=== PATIENT | male | born 1985 | race African-American/Black ===

== ENCOUNTER 2020-12-30 11:48 | Emergency (ER) | payer SELFPAY ==
[~2020-12-30] VITALS: Ht 175.3 cm; Wt 66.0 kg
[2020-12-30] MEDS ORDERED: NAPROXEN 500 MG TABLET PO STA (12:04)
[2020-12-30] MEDS ORDERED: CYCLOBENZAPRINE 10 MG TABLET. PO ONE (12:15)
[2020-12-30] MEDS ORDERED: predniSONE 20 MG TABLET PO ONE (12:15)
[2020-12-30] MEDS ORDERED: HYDROcodone/APAP 5/325MG 1 TAB TABLET PO ONE (12:15)
--- NOTE | 2020-12-30 12:21 | RAD ---
XR SHOULDER_LEFT 2+ VIEWS History: Reason: PAIN, BOWLING INJURY 11 DAYS AGO / Spl. Instructions: / History: Comparison: None. Technique: 3 views the left shoulder. Findings: There is no evidence for fracture. Alignment is normal. No destructive osseous lesions are seen. Joint spaces are preserved. Soft tissues are normal. Impression: 1. Unremarkable left shoulder. Electronically signed by: Adi Guerra MD (12/30/2020 12:19 PM) [facility]
[2020-12-30] MEDS ORDERED: NAPR-514 PO (12:57)
[2020-12-30] MEDS ORDERED: CYCL10TA2 PO (12:57)
[2020-12-30] MEDS ORDERED: METH4TAB2 PO (12:57)
--- NOTE | 2020-12-30 12:57 | PHYS DOC ---
Past Medical History Past Medical History: No Pertinent History Past Surgical History: No Surgical History Smoking Status: Current Every Day Smoker Alcohol Use: Occasionally Drug Use: Marijuana General Adult EDM: Chief Complaint: SHOULDER INJURY HPI: HPI: Patient is a 35 year old male patient presenting to the ED today complaining of moderate pain to the left shoulder that began 1-1/2 weeks ago. Patient denies any known injury but states he has been bowling a lot. 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 Patient states the pain is worse during bowling episodes. Describes the pain as sharp and intermittent. States immobilization with a sling he has long has been relieving some of the pain. Review of Systems: Review of Systems: Constitutional: Denies fever or chills. [] : Denies dysuria. [] Musculoskeletal: Reports left shoulder pain. Integument: Denies rash. [] Neurologic: Denies headache, focal weakness or sensory changes. [] ] Psychiatric: Denies depression or anxiety. [] Heart Score: Risk Factors: Risk Factors: DM, Current or recent (<one month) smoker, HTN, HLP, family history of CAD, obesity. Risk Scores: Score 0 - 3: 2.5% MACE over next 6 weeks - Discharge Home Score 4 - 6: 20.3% MACE over next 6 weeks - Admit for Clinical Observation Score 7 - 10: 72.7% MACE over next 6 weeks - Early Invasive Strategies Current Medications: Current Medications Medications (Trade) Dose Ordered Sig/Jamal Start Time Stop Time Status Last Admin Dose Admin Acetaminophen/ Hydrocodone Bitart (Lortab 5/325) 1 tab 1X ONCE 12/30/20 12:15 12/30/20 12:16 DC 12/30/20 12:23 1 TAB Cyclobenzaprine HCl (Flexeril) 10 mg 1X ONCE 12/30/20 12:15 12/30/20 12:16 DC 12/30/20 12:22 10 MG Naproxen (Naprosyn) 500 mg 1X STAT 12/30/20 12:04 12/30/20 12:06 DC 12/30/20 12:23 500 MG Prednisone (Prednisone) 60 mg 1X ONCE 12/30/20 12:15 12/30/20 12:16 DC 12/30/20 12:23 60 MG Allergies: Allergies: Allergies Coded Allergies Type Severity Reaction Last Updated Verified No Known Drug Allergies 11/15/13 No Physical Exam: PE: Constitutional: Well developed, well nourished, no acute distress, non-toxic appearance. [] Skin: Warm, dry, no erythema, no rash. [] Back: No tenderness, no CVA tenderness. [] Extremities: Left shoulder with no obvious deformity. Full range of motion to the left shoulder. Adequate radial, medial, ulnar sensation to the left upper extremity. +2 left radial pulse. Cap refill less than 2 seconds in left fingers. Neurologic: Alert and oriented X 3, normal motor function, normal sensory function, no focal deficits noted. [] Psychologic: Affect normal, judgement normal, mood normal. [] EKG: EKG: [] Radiology/Procedures: Radiology/Procedures: []PROCEDURE: SHOULDER 2+V LEFT XR SHOULDER_LEFT 2+ VIEWS History: Reason: PAIN, BOWLING INJURY 11 DAYS AGO / Spl. Instructions: / History: Comparison: None. Technique: 3 views the left shoulder. Findings: There is no evidence for fracture. Alignment is normal. No destructive osseous lesions are seen. Joint spaces are preserved. Soft tissues are normal. Impression: 1. Unremarkable left shoulder. Electronically signed by: Adi Guerra MD (12/30/2020 12:19 PM) [facility] DICTATED and SIGNED BY: ADI GUERRA MD DATE: 12/30/20 [id number] 0 Course & Med Decision Making: Course & Med Decision Making Pertinent Labs and Imaging studies reviewed. (See chart for details) This is a 35-year-old male patient presented to the ED today with left shoulder pain for 1-1/2 weeks. Left shoulder x-rays interpreted by radiologist are negative for any acute findings. Ice elevation encouraged. Provided orthopedic doctor for follow-up. He already has a sling applied by himself, neurovascular exam done by me is normal. Cap refill to the left fingers less than 2 seconds. Provided return precautions. Dragon Disclaimer: Dragon Disclaimer: This electronic medical record was generated, in whole or in part, using a voice recognition dictation system. Departure Departure Impression: Primary Impression: Shoulder pain, left Qualified Codes: M25.512 - Pain in left shoulder Disposition: 01 DC HOME SELF CARE/HOMELESS Condition: STABLE Referrals: NO PCP (PCP) HELENA ANDINO MD follow up in 1 week Patient Instructions: Shoulder Pain, [id number] Additional Instructions: You have left shoulder pain, your left shoulder x-rays are negative for any acute findings. Please follow-up with the provided orthopedic doctor. Try to take your left upper extremity through full range of motion to avoid frozen shoulder syndrome. Scripts Naproxen (NAPROXEN) 500 Mg Tablet 1 TAB PO BID for pain, #30 TAB 0 Refills Prov: JOSE MURGUIA APRN 12/30/20 Methylprednisolone (MEDROL) 4 Mg Tab.ds.pk 1 PKG PO UD, #1 PKG Prov: JOSE MURGUIA APRN 12/30/20 Cyclobenzaprine Hcl (CYCLOBENZAPRINE HCL) 10 Mg Tablet 1 TAB PO TID, #90 TAB Prov: JOSE MURGUIA APRN 12/30/20 JOSE MURGUIA APRN Dec 30, 2020 12:57
[2020-12-30 13:18] VITALS: BP 125/85
== END 2020-12-30 13:18 | disposition home or self-care (01) ==
LOC: ER 11:48
DX: M25.512 Pain in left shoulder (principal); F17.200 Nicotine dependence, unspecified, uncomplicated
CPT/HCPCS: 73030; 99284; A4565; J7512